=== PATIENT | male | born 1990 | race Caucasian/White ===

== ENCOUNTER 2020-11-29 20:02 | Emergency (ER) | payer OTHER ==
[2020-11-29 20:24] VITALS: BP 160/89; PULSE 107; RESP 20; TEMP 98
[2020-11-29] MEDS ORDERED: KETOROLAC 15 MG/ML 1 ML VIAL IM STA (21:12)
[2020-11-29] MEDS ORDERED: BACITRACIN OINT 1 EACH PACKET TOPICAL ONE (21:12)
[2020-11-29] MEDS ORDERED: WATER FOR IRRIG, STERILE 1,000 ML BTL IRRIGATION ONE (21:12)
[2020-11-29] MEDS ORDERED: AMOXIC-POT CLAV 875MG STARTER PACK 2 TAB BTL PO STA (21:12)
[2020-11-29] MEDS ORDERED: ACET/COD 300 MG/30 MG STARTER PACK 6 TAB BTL PO STA (21:42)
--- NOTE | 2020-11-29 21:44 | ED ---
Animal Bite HPI - General Chief Complaint: Animal Bite Stated Complaint: Dog bite Time Seen by Provider: 11/29/20 20:35 Source: patient Mode of arrival: ambulatory Limitations: no limitations - History of Present Illness Initial Comments: 30 year-old male patient presents to the emergency department for evaluation of dog bite to the back and left shoulder. States he was attacked by his friends dog. States the dog is up to date on vaccines including rabies. States he has had his tetanus vaccine less than 5 years ago. Patient reports pain to the bite sites. No numbness or tingling to the left arm. No pain with movement of the joint. He has not taken anything for pain. Injury occurred approximately two hours ago. Denies any other injuries or concerns. - Related Data Previous Rx's Medication Instructions Recorded Amoxic-Pot Clav 875-125Mg 1 tab PO Q12HR #14 tablet 11/29/20 [Augmentin 875-125] Ibuprofen [Motrin] 600 mg PO Q8HR PRN #30 tab 11/29/20 Allergies Allergy/AdvReac Type Severity Reaction Status Date / Time No Known Allergies Allergy Verified 11/29/20 20:24 Review of Systems ROS Statement: Those systems with pertinent positive or pertinent negative responses have been documented in the HPI. ROS Other: All systems not noted in ROS Statement are negative. Past Medical History Past Medical History: No Reported History History of Any Multi-Drug Resistant Organisms: None Reported Past Surgical History: No Surgical Hx Reported Past Psychological History: No Psychological Hx Reported Smoking Status: Never smoker Past Alcohol Use History: None Reported Past Drug Use History: Marijuana, Methamphetamine General Exam Limitations: no limitations General appearance: alert, in no apparent distress, other (Physical well-dev eloped, well-nourished adult male patient in no acute distress. Vital signs upon presentation temperature 98.0F, pulse 107, respirations 20, blood pressure 160/89, pulse ox 97% on room air.) Respiratory exam: Present: normal lung sounds bilaterally. Absent: respiratory distress, wheezes, rales, rhonchi, stridor Cardiovascular Exam: Present: regular rate, normal rhythm, normal heart sounds. Absent: systolic murmur, diastolic murmur, rubs, gallop, clicks Extremities exam: Present: full ROM, tenderness (Over the left anterior shoulder), normal capillary refill, other (There are puncture wounds and abrasions noted over the left anterior shoulder. No bony tenderness noted. Full range of motion intact. Skin is otherwise pink, warm, dry. Cap refill less than 3 seconds. Radial pulses 2+.). Absent: normal inspection, pedal edema, joint swelling, calf tenderness Back exam: Present: other (There is soft tissue swelling, abrasion, 1 cm superficial laceration noted to the left mid back. Multiple linear abrasions noted to the left low back.). Absent: vertebral tenderness Neurological exam: Present: alert, oriented X3, CN II-XII intact Psychiatric exam: Present: normal affect, normal mood Skin exam: Present: warm, dry, intact, normal color. Absent: rash Course Vital Signs 11/29/20 20:21 Temperature 98.0 F Pulse Rate 107 H Respiratory 20 Rate Blood Pressure 160/89 O2 Sat by Pulse 97 Oximetry Medical Decision Making - Medical Decision Making 30-year-old male patient presented to the emergency department today for evaluation of dog bite to the left shoulder and the back. Physical examination did reveal multiple abrasions and puncture wound to the left anterior shoulder with surrounding soft tissue swelling and ecchymosis. Also had evidence for multiple abrasions, soft tissue swelling, ecchymosis to the left mid back and multiple linear abrasions noted to the left low back. Wounds were irrigated extensively with sterile water. Bacitracin applied. Laceration to the back was left open due to it being a dog bite. He was started on Augmentin for prophylaxis. His tetanus is up-to-date. Dog's rabies vaccine is up-to-date. To be discharged to follow-up with his primary care physician for recheck in 1-2 days. Return parameters discussed in detail. He verbalizes understanding and agrees with this plan. My attending is Dr. Pena. Disposition Clinical Impression: Open wound of left shoulder due to dog bite, Abrasion of back, Laceration of back, Dog bite Disposition: HOME SELF-CARE Condition: Good Instructions (If sedation given, give patient instructions): Animal Bite (ED), Acute Wound Care (ED) Additional Instructions: Keep wounds clean and dry. Cleanse twice daily with warm water and antibacterial soap. Apply antibiotic ointment. Complete antibiotic prescription in full. Follow-up for recheck with your primary care physician in one to days. Return for any new, worsening, or concerning symptoms. Prescriptions: Amoxic-Pot Clav 875-125Mg [Augmentin 875-125] 1 tab PO Q12HR #14 tablet Ibuprofen [Motrin] 600 mg PO Q8HR PRN #30 tab PRN Reason: Pain Is patient prescribed a controlled substance at d/c from ED?: No Referrals: None,Stated [Primary Care Provider] - 1-2 days Time of Disposition: 21:44
== END 2020-11-29 22:10 | disposition home or self-care (01) ==
LOC: EC 20:02
DX: S41.032A Puncture wound without foreign body of left shoulder, initial encounter (principal); S21.212A Laceration without foreign body of left back wall of thorax without penetration into thoracic cavity, initial encounter; S30.810A Abrasion of lower back and pelvis, initial encounter; W54.0XXA Bitten by dog, initial encounter; Y92.009 Unspecified place in unspecified non-institutional (private) residence as the place of occurrence of the external cause
CPT/HCPCS: 99282; 96372; J1885

== ENCOUNTER → 2024-03-16 | Outpatient (CLI) | payer OTHER ==
--- NOTE | 2024-03-16 09:45 | US ---
EXAMINATION TYPE: US liver DATE OF EXAM: 03/16/2024 COMPARISON: NONE CLINICAL INDICATION: Male, 33 years old with history of R74.8 Elevated liver enzymes; Patient denies any signs, symptoms, or relevant history TECHNIQUE: Grayscale and color Doppler imaging of the right upper quadrant was performed. FINDINGS: EXAM MEASUREMENTS: Liver Length: 16.8 cm Gallbladder Wall: 0.2 cm CBD: 0.3 cm Right Kidney: 10.6 x 3.7 x 5.4 cm Pancreas: wnl Liver: Increased attenuation . No focal liver lesion identified. Noncirrhotic morphology. Gallbladder: wnl Evidence for sonographic Fry's sign: No CBD: wnl Right Kidney: wnl IMPRESSION: 1. No acute process. 2. Hepatic steatosis. [facility], , 03/16/2024 9:43 AM
== END | disposition home or self-care (01) ==
LOC: RADUSWWP 09:26
PROVIDERS: ATTEND Family Medicine
DX: R74.8 Abnormal levels of other serum enzymes
CPT/HCPCS: 76705